=== PATIENT | female | born 1985 | race Hispanic/Latino ===

== ENCOUNTER 2021-09-18 11:14 | Day surgery (SDC) | payer OTHER ==
[2021-09-18 12:03] VITALS: BMI 35.3
[2021-09-18] MEDS ORDERED: hydrALAZINE 20 MG/ML VIAL SLOW IVP PRN (12:43)
[2021-09-18] MEDS ORDERED: Acetaminophen 500 MG TAB PO SCH (12:45)
== END 2021-09-18 13:17 | disposition home or self-care (01) ==
LOC: CSHLD/OP 11:14
PROVIDERS: ATTEND Obstetrics & Gynecology
DX: O99.891 Other specified diseases and conditions complicating pregnancy (principal); R51.9 Headache, unspecified; R03.0 Elevated blood-pressure reading, without diagnosis of hypertension; O09.523 Supervision of elderly multigravida, third trimester; Z3A.35 35 weeks gestation of pregnancy; Z79.82 Long term (current) use of aspirin; Z88.0 Allergy status to penicillin
CPT/HCPCS: 99283

== ENCOUNTER 2021-09-21 14:53 | Day surgery (SDC) | payer OTHER ==
[2021-09-21] MEDS ORDERED: hydrALAZINE 20 MG/ML VIAL SLOW IVP PRN (16:43)
[2021-09-21 17:33] LABS: #Eosinphils 0.1 10x3/uL (0.0-0.5); #Monocytes 0.5 10x3/uL (0.0-1.1); #Neutrophils 7.6 10x3/uL (1.5-8.4); %Basophils 0.1 % (0.0-2.0); %Eosinophils 1.1 % (0.0-6.0); %Lymphocytes 15.8 % (18.0-47.0); %Monocytes 4.8 % (0.0-10.0); %Neutrophils 77.8 % (40.0-75.0); Hemoglobin 9.9 g/dL (12.0-15.5); Mean Corpuscular HGB CONC 30.4 g/dL (32.0-36.0); Mean Corpuscular Hemoglobin 23.5 pg (27.0-33.0); Mean Corpuscular Volume 77.4 fl (81.6-98.3); Mean Platelet Volume 10.7 fl (7.4-10.4); Platelet Count 302 10x3/uL (150-450); RBC Distribution Width 15.8 % (11.5-14.5); Red Blood Cell (RBC) Count 4.21 10x6/uL (3.90-5.03); White Blood Cell (WBC) Count 9.8 10x3/uL (3.5-10.5)
[2021-09-21 17:41] LABS: ALT (SGPT) 8 U/L (8-55); AST (SGOT) 12 U/L (5-34); Albumin 3.3 g/dL (3.5-5.0); Alkaline Phosphatase 169 U/L (40-110); Anion Gap 11 mmol/L (10-20); BUN (Urea Nitrogen) 6 mg/dL (7.0-18.7); Bilirubin, Total 0.2 mg/dL (0.2-1.2); Calc. Creatinine Clearance 0 mL/min (70-130); Calcium 9.3 mg/dL (7.8-10.44); Carbon Dioxide 25 mmol/L (22-29); Chloride 106 mmol/L (98-107); Globulin 3.8 g/dL (2.4-3.5); Glucose 87 mg/dL (70-105); Potassium 3.7 mmol/L (3.5-5.1); Protein, Total 7.1 g/dL (6.0-8.3); Sodium 138 mmol/L (136-145)
== END 2021-09-21 18:44 | disposition home health service (06) ==
LOC: CSHLD/OP 14:53
PROVIDERS: ATTEND Obstetrics & Gynecology
DX: O47.03 False labor before 37 completed weeks of gestation, third trimester (principal); O13.3 Gestational [pregnancy-induced] hypertension without significant proteinuria, third trimester; Z3A.35 35 weeks gestation of pregnancy; Z79.82 Long term (current) use of aspirin; Z88.0 Allergy status to penicillin
CPT/HCPCS: 36415; 80053; 82570; 84156; 85025

== ENCOUNTER 2021-09-29 12:27 | Outpatient (CLI) | payer OTHER ==
[2021-09-30 13:49] LABS: SARS-CoV-2 PCR by NAA Not Detected (NotDetected)
== END 2021-09-29 12:28 | disposition home or self-care (01) ==
LOC: CSHLAB 12:27
PROVIDERS: ATTEND Obstetrics & Gynecology
DX: Z20.822 Contact with and (suspected) exposure to COVID-19 (principal)
CPT/HCPCS: U0003; U0005

== ENCOUNTER 2021-10-03 05:28 | Inpatient (IN) | payer OTHER ==
[2021-10-03] MEDS ORDERED: hydrALAZINE 20 MG/ML VIAL SLOW IVP PRN (05:44)
[2021-10-03] MEDS ORDERED: Ondansetron PF 4 MG/2 ML Vial IVP PRN ×3 (05:44→17:09)
[2021-10-03] MEDS ORDERED: HYDROcodone/Acetaminophen 5/325 mg Tablet PO PRN (05:44)
[2021-10-03] MEDS ORDERED: Lidocaine 1% (PF) 30 ML VIAL SC PRN (05:44)
[2021-10-03] MEDS ORDERED: Butorphanol Tartrate 1 MG/ML VIAL SLOW IVP PRN (05:44)
[2021-10-03] MEDS ORDERED: Ibuprofen 800 MG TAB PO PRN (05:44)
[2021-10-03] MEDS ORDERED: Promethazine HCl 25 MG/ML VIAL IM PRN ×3 (05:44→17:09)
[2021-10-03] MEDS ORDERED: NS w/ Oxytocin 30 units 500 ML IV SCH ×2 (06:00)
[2021-10-03 06:23] VITALS: BMI 34.2
[2021-10-03 06:31] LABS: Hemoglobin 10.3 g/dL (12.0-15.5); Mean Corpuscular HGB CONC 30.5 g/dL (32.0-36.0); Mean Corpuscular Hemoglobin 23.3 pg (27.0-33.0); Mean Corpuscular Volume 76.3 fl (81.6-98.3); Mean Platelet Volume 11.4 fl (7.4-10.4); Platelet Count 261 10x3/uL (150-450); RBC Distribution Width 16.5 % (11.5-14.5); Red Blood Cell (RBC) Count 4.43 10x6/uL (3.90-5.03); White Blood Cell (WBC) Count 8.3 10x3/uL (3.5-10.5)
[2021-10-03 06:53] LABS: ALT (SGPT) 11 U/L (8-55); AST (SGOT) 16 U/L (5-34); Albumin 3.6 g/dL (3.5-5.0); Alkaline Phosphatase 194 U/L (40-110); Anion Gap 15 mmol/L (10-20); BUN (Urea Nitrogen) 9 mg/dL (7.0-18.7); Bilirubin, Total 0.3 mg/dL (0.2-1.2); Calc. Creatinine Clearance 197 mL/min (70-130); Calcium 8.8 mg/dL (7.8-10.44); Carbon Dioxide 19 mmol/L (22-29); Chloride 108 mmol/L (98-107); Globulin 3.1 g/dL (2.4-3.5); Glucose 126 mg/dL (70-105); Potassium 3.9 mmol/L (3.5-5.1); Protein, Total 6.7 g/dL (6.0-8.3); Sodium 138 mmol/L (136-145)
[2021-10-03 07:13] LABS: Hep B Surf Ag Non-Reactive S/CO (NonReactive)
[2021-10-03 07:14] LABS: Syphilis Antibody Nonreactive (Nonreactive); Syphilis Antibody Index 0.05 S/CO (<1.00 Non-Reactive)
[2021-10-03 07:22] LABS: HBSAg Index 0.19 S/CO (0-0.99)
[2021-10-03] MEDS ORDERED: Bupivacaine 0.25% HCL 30 ML VIAL ONE (08:00)
[2021-10-03] MEDS ORDERED: Acetaminophen 500 MG TAB PO PRN (09:09)
[2021-10-03] MEDS ORDERED: Fentanyl 2 mcg/Bup 0.1% Cadd 100 ML ONE (09:21)
[2021-10-03] MEDS: Lactated Ringer's 1,000 ML IV SCH ×3 (10:15→23:14)
[2021-10-03] MEDS ORDERED: Hydrocerin (Eucerin) Cream 120 gm Jar TOP PRN ×2 (10:31→17:09)
[2021-10-03] MEDS ORDERED: ePHEDrine Sulfate 50 MG/10 ML VIAL SLOW IVP PRN (10:31)
[2021-10-03] MEDS ORDERED: diphenhydrAMINE 50 MG/ML VIAL IVP PRN ×2 (10:31→17:09)
[2021-10-03] MEDS ORDERED: Naloxone HCl 0.4 mg/ml Vial IVP PRN ×4 (10:31→17:09)
[2021-10-03] MEDS ORDERED: Acetaminophen 325 MG TAB PO PRN (10:31)
[2021-10-03] MEDS ORDERED: Lactated Ringer's 500 ML IV PRN (10:31)
[2021-10-03] MEDS ORDERED: Magnesium Sulfate 20 gm/500 ml 20 GM/500 ML BAG ONE (10:40)
[2021-10-03] MEDS ORDERED: Fentanyl 2 mcg/Bupivacaine 0.1% Cassette 100 ML EPIDURAL SCH (10:45)
[2021-10-03] MEDS ORDERED: Communication Order-Pharmacy FS PRN (10:45)
[2021-10-03] MEDS ORDERED: Labetalol HCl 100 MG/20 ML VIAL ONE (11:13)
[2021-10-03] MEDS ORDERED: Calcium Gluc 4.6 MEQ/10 ML (100 MG/ML) IV PRN (12:45)
[2021-10-03] MEDS ORDERED: Magnesium Sulfate 20 gm/500 ml 20 GM/500 ML BAG IVPB PRN (12:45)
[2021-10-03] MEDS ORDERED: Labetalol HCl 100 MG/20 ML VIAL SLOW IVP SCH (12:45)
[2021-10-03] MEDS ORDERED: Magnesium Sulfate 20 gm/500 ml 4 GM/100 ML BAG IVPB SCH (12:45)
[2021-10-03] MEDS ORDERED: Famotidine/PF 20 mg/2ml Vial SLOW IVP PRN (15:20)
[2021-10-03] MEDS ORDERED: Bicitra 30 ML UDCUP PO PRN (15:20)
[2021-10-03] MEDS ORDERED: ceFAZolin 2 GM/Dextrose 50 ML 2 GM in Premix Bag 1 BAG IVPB SCH (15:30)
[2021-10-03] MEDS ORDERED: Azithromycin 500 MG in Sodium Chloride 0.9% 250 ML 250 ML IVPB SCH (15:30)
[2021-10-03] MEDS ORDERED: Fentanyl 100 MCG/2 ML VIAL ONE (16:18)
[2021-10-03] MEDS ORDERED: Morphine PF 10 MG/10 ML VIAL ONE (16:18)
[2021-10-03] MEDS ORDERED: Lidocaine 2% MPF 10 ML AMP (For Epidural Use) ONE (16:25)
[2021-10-03] MEDS ORDERED: Bupivacaine 0.75% W/DEXTROSE 8.25% 2 ML AMP ONE (16:25)
[2021-10-03] MEDS ORDERED: PROPOFOL 0 ML ONE (16:25)
[2021-10-03] MEDS ORDERED: Succinylcholine 200 MG/10 ml SYRINGE FS ONE (16:52)
[2021-10-03] MEDS ORDERED: Oxytocin 10 UNITS/ML VIAL ONE (16:52)
[2021-10-03] MEDS ORDERED: Ondansetron PF 4 MG/2 ML Vial ONE (17:01)
[2021-10-03] MEDS ORDERED: Ketorolac Tromethamine 30 MG/ML VIAL ONE (17:01)
[2021-10-03] MEDS ORDERED: Dexamethasone 4 mg/ml Vial ONE (17:01)
[2021-10-03] MEDS ORDERED: Promethazine HCl 25 MG SUPP PR PRN (17:09)
[2021-10-03] MEDS ORDERED: Naloxone HCl 0.4 mg/ml Vial IV PRN (17:09)
[2021-10-03] MEDS ORDERED: Communication Order-Pharmacy FS SCH (17:15)
[2021-10-03] MEDS: Morphine 4 MG/ML VIAL SLOW IVP PRN (18:04)
[2021-10-03] MEDS ORDERED: Morphine 4 MG/ML VIAL ONE (18:04)
[2021-10-04] MEDS ORDERED: Promethazine HCl 25 MG/ML VIAL IM PRN (03:58)
[2021-10-04] MEDS ORDERED: Boostrix 0.5 ML (Tdap) VIAL IM ONE (03:58)
[2021-10-04] MEDS ORDERED: hydrALAZINE 20 MG/ML VIAL SLOW IVP PRN ×2 (03:58→08:10)
[2021-10-04] MEDS ORDERED: HYDROcodone/Acetaminophen 5/325 mg Tablet PO PRN ×3 (03:58→08:10)
[2021-10-04] MEDS ORDERED: Simethicone Chewable 80 MG TAB PO PRN ×2 (03:58→08:10)
[2021-10-04] MEDS ORDERED: Acetaminophen 325 MG TAB PO PRN (03:58)
[2021-10-04] MEDS ORDERED: Magnesium Sulfate 20 gm/500 ml 20 GM/500 ML BAG IVPB SCH (03:58)
[2021-10-04] MEDS ORDERED: Calcium Gluconate 4.6 MEQ in Sodium Chloride 0.9% 100 ML IVPB PRN (03:58)
[2021-10-04] MEDS ORDERED: Ondansetron PF 4 MG/2 ML Vial IVP PRN ×2 (03:58→08:10)
[2021-10-04] MEDS ORDERED: Lanolin Ointment 7 GM TUBE TOP PRN ×2 (03:58→08:10)
[2021-10-04] MEDS ORDERED: diphenhydrAMINE 25 MG CAP PO PRN ×2 (03:58→08:10)
[2021-10-04] MEDS: Morphine 4 MG/ML VIAL SLOW IVP PRN (04:08)
[2021-10-04 06:45] LABS: Magnesium 5.3 mg/dL (1.6-2.6)
[2021-10-04] MEDS ORDERED: Bisacodyl 10 MG SUPP PR PRN (08:10)
[2021-10-04] MEDS ORDERED: Docusate 100 MG CAP PO SCH (09:00)
[2021-10-04] MEDS ORDERED: Ferrous Sulfate 325 MG TAB PO SCH (09:00)
[2021-10-04] MEDS ORDERED: Prenatal Vitamin 1 TAB PO SCH (09:00)
[2021-10-04] MEDS: NIFEdipine XL 30 MG TAB PO SCH (09:48)
[2021-10-04] MEDS: Ketorolac Tromethamine 30 MG/ML VIAL IVP PRN ×2 (09:55→17:14)
[2021-10-04] MEDS: Lactated Ringer's 1,000 ML IV SCH (12:52)
[2021-10-04] MEDS: Docusate 100 MG CAP PO SCH ×2 (18:07→21:54)
[2021-10-04] MEDS: Prenatal Vitamin 1 TAB PO SCH (18:08)
[2021-10-04] MEDS: Ferrous Sulfate 325 MG TAB PO SCH ×2 (18:08→21:56)
[2021-10-04] MEDS: HYDROcodone/Acetaminophen 5/325 mg Tablet PO PRN (19:14)
[2021-10-04] MEDS: Ibuprofen 800 MG TAB PO SCH (21:54)
[2021-10-05] MEDS: HYDROcodone/Acetaminophen 5/325 mg Tablet PO PRN (02:37)
[2021-10-05] MEDS: Ibuprofen 800 MG TAB PO SCH ×2 (05:43→13:43)
[2021-10-05] MEDS: Docusate 100 MG CAP PO SCH (08:47)
[2021-10-05] MEDS: Prenatal Vitamin 1 TAB PO SCH (08:47)
[2021-10-05] MEDS: NIFEdipine XL 30 MG TAB PO SCH (08:47)
[2021-10-05] MEDS ORDERED: Ondansetron ODT 8 MG TAB PO SCH (09:15)
[2021-10-05] MEDS: Ferrous Sulfate 325 MG TAB PO SCH (11:21)
[2021-10-05 15:55] VITALS: BP 131/78; TEMP 98.2
== END 2021-10-05 17:05 | disposition home or self-care (01) | DRG 785 ==
LOC: CSHLD 05:28 → CSHPP 10-04 17:55
PROVIDERS: ADMIT Obstetrics & Gynecology; ATTEND Obstetrics & Gynecology
PROC: 10D00Z1 Extraction of Products of Conception, Low, Open Approach (ICD-10-PCS; principal; 2021-10-03)
PROC: 0UT70ZZ Resection of Bilateral Fallopian Tubes, Open Approach (ICD-10-PCS; 2021-10-03)
PROC: 3E033VJ Introduction of Other Hormone into Peripheral Vein, Percutaneous Approach (ICD-10-PCS; 2021-10-03)
DX: O14.14 Severe pre-eclampsia complicating childbirth (principal); Z3A.37 37 weeks gestation of pregnancy; Z37.0 Single live birth; O76 Abnormality in fetal heart rate and rhythm complicating labor and delivery; O13.4 Gestational [pregnancy-induced] hypertension without significant proteinuria, complicating childbirth; Z80.9 Family history of malignant neoplasm, unspecified; Z30.2 Encounter for sterilization; D64.9 Anemia, unspecified; O99.02 Anemia complicating childbirth; O69.81X0 Labor and delivery complicated by cord around neck, without compression, not applicable or unspecified; Z88.0 Allergy status to penicillin
CPT/HCPCS: 36415; 51702; 80053; 83735; 85027; 86780; 86850; 86900; 86901; 87340; 88302; 88307; J0360; J1100; J1885; J2270; J2274; J2405; J2590; J2704; J3010; J3475; J3490; J7120; Q0162; S0020; S0028

== ENCOUNTER 2022-04-07 09:48 | Outpatient (CLI) | payer OTHER | END 2022-04-07 09:49 | disposition home or self-care (01) | LOC: CSHLAB 09:48 | PROVIDERS: ATTEND Obstetrics & Gynecology | DX: Z01.812 Encounter for preprocedural laboratory examination (principal); Z20.822 Contact with and (suspected) exposure to COVID-19; N92.0 Excessive and frequent menstruation with regular cycle; Z53.9 Procedure and treatment not carried out, unspecified reason | CPT/HCPCS: 84703; 85027; 86850; 86900; 86901; 87811 ==

== ENCOUNTER 2022-04-12 07:31 | Day surgery (SDC) | payer OTHER ==
[2022-04-07 08:47] VITALS: BMI 32.9
[2022-04-07 10:57] LABS: Hemoglobin 10.8 g/dL (12.0-15.5); Mean Corpuscular HGB CONC 29.7 g/dL (32.0-36.0); Mean Corpuscular Volume 74.3 fl (81.6-98.3); Mean Platelet Volume 10.3 fl (7.4-10.4); Platelet Count 396 10x3/uL (150-450); RBC Distribution Width 18.3 % (11.5-14.5)
[2022-04-07 11:21] LABS: BHCG - Serum Negative (NEGATIVE); Pregs Control Background? CLEAR/WHITE (CLR/WHITE); Pregs Control Bar Appear? YES (CONTROL BAR)
[2022-04-12] MEDS ORDERED: Gabapentin 300 MG CAP ONE (07:56)
[2022-04-12] MEDS ORDERED: CeleCOXIB 100 MG CAP ONE (07:56)
[2022-04-12] MEDS ORDERED: Lidocaine 4% PF 5 ML AMP ONE (08:41)
[2022-04-12] MEDS ORDERED: Famotidine/PF 20 mg/2ml Vial ONE (08:44)
[2022-04-12] MEDS ORDERED: Lidocaine 1% MPF 2 ML VIAL ONE (08:44)
[2022-04-12] MEDS ORDERED: Ropivacaine 0.2% 550 ML 550 ML NERVE BLCK SCH (09:15)
[2022-04-12] MEDS ORDERED: Rocuronium Bromide 10 MG/ML (10ML VIAL) ONE (09:32)
[2022-04-12] MEDS ORDERED: Dexamethasone 20 MG/5 ML VIAL ONE (09:32)
[2022-04-12] MEDS ORDERED: Midazolam HCl 2 mg/2 ml Vial ONE (09:32)
[2022-04-12] MEDS ORDERED: Lidocaine 1% PF 5 ML VIAL ONE (09:32)
[2022-04-12] MEDS ORDERED: Ondansetron PF 4 MG/2 ML Vial ONE ×2 (09:32→13:52)
[2022-04-12] MEDS ORDERED: Fentanyl 250 MCG/5 ML VIAL ONE (09:32)
[2022-04-12] MEDS ORDERED: PROPOFOL 20 ML ONE (09:32)
[2022-04-12] MEDS ORDERED: Ketorolac Tromethamine 30 MG/ML VIAL ONE (09:32)
[2022-04-12] MEDS ORDERED: Glycopyrrolate 0.2 MG/ML 5 ML SYRINGE ONE (09:32)
[2022-04-12] MEDS ORDERED: Bupivacaine PF 0.5% 30 ML VIAL ONE (09:33)
[2022-04-12] MEDS ORDERED: EPINEPHrine 1 MG/ML AMP ONE (09:33)
[2022-04-12] MEDS ORDERED: CEFAZOLIN 2 GM VIAL ONE (09:53)
[2022-04-12] MEDS ORDERED: ePHEDrine Sulfate 50 MG/10 ML VIAL ONE (11:08)
[2022-04-12] MEDS ORDERED: Fentanyl 100 MCG/2 ML VIAL ONE (12:13)
[2022-04-12] MEDS ORDERED: HYDROcodone/Acetaminophen 5/325 mg Tablet ONE (13:25)
== END 2022-04-12 15:14 | disposition home or self-care (01) ==
LOC: CSHSDC 07:31
PROVIDERS: ATTEND Obstetrics & Gynecology
PROC: 0UT94ZZ Resection of Uterus, Percutaneous Endoscopic Approach (ICD-10-PCS; principal; 2022-04-12)
PROC: 8E0W4CZ Robotic Assisted Procedure of Trunk Region, Percutaneous Endoscopic Approach (ICD-10-PCS; principal; 2022-04-12)
DX: D25.9 Leiomyoma of uterus, unspecified (principal); N87.9 Dysplasia of cervix uteri, unspecified; K43.9 Ventral hernia without obstruction or gangrene; E66.9 Obesity, unspecified; Z68.32 Body mass index [BMI] 32.0-32.9, adult; Z79.899 Other long term (current) drug therapy; Z88.0 Allergy status to penicillin; Z20.822 Contact with and (suspected) exposure to COVID-19
CPT/HCPCS: 84703; 85027; 86850; 86900; 86901; 87811; 88307; A4306; C1776; J0171; J0690; J1100; J1885; J2250; J2405; J2704; J2795; J3010; S0020; S0028